=== PATIENT | male | born 1965 | race Caucasian/White ===

== ENCOUNTER 2020-01-10 22:05 | Emergency (ER) | payer SELFPAY ==
[~2020-01-10] VITALS: Ht 162.6 cm; Wt 115.7 kg
--- NOTE | 2020-01-10 22:30 | NUR ---
Patient walked into ER c/o bruise on abdominal area due to cough that started 1 week ago but worse now. Came in also for bilateral hands and foot cramps while driving home.
[2020-01-10] MEDS ORDERED: IV NORMAL SALINE 1000 ML BAG IV ONE (23:00)
[2020-01-10 23:21] LABS: *BILIRUBIN,URIN NEGATIVE (NEGATIVE); *BLOOD, URINE NEGATIVE (NEGATIVE); *CLARITY,URINE CLEAR (CLEAR); *COLOR,URINE YELLOW (YELLOW); *KETONES,URINE NEGATIVE (NEGATIVE); *UROBILINOGEN,URINE 0.2 E.U./dl (NORMAL); LEUKOCYTE ESTERASE ,URINE NEGATIVE (NEGATIVE); NITRITE, URINE NEGATIVE (NEGATIVE); UGLUCOSE 3+ (NEGATIVE)
[2020-01-10 23:22] LABS: CREATININE 1.1 mg/dL (0.6-1.3); POTASSIUM 3.8 mmol/L (3.5-5.1)
[2020-01-10 23:23] LABS: BASOPHILS # (AUTO) 0.1 K/uL (0.0-8.0); BASOPHILS % (AUTO) 0.9 % (0.0-2.0); EOSINOPHILS # (AUTO) 0.2 K/uL (0.0-0.7); EOSINOPHILS % (AUTO) 1.4 % (0.0-7.0); HEMATOCRIT 36.5 % (36.7-47.1); HEMOGLOBIN 13.2 g/dL (12.5-16.3); LYMPHOCYTES % (AUTO) 18.8 % (20.5-51.5); MEAN CORPUSCULAR HEMOGLOBIN 32.8 uug (23.8-33.4); MEAN CORPUSCULAR HGB CONC 36 g/dL (32.5-36.3); MEAN CORPUSCULAR VOLUME 90.6 fL (73.0-96.2); MONOCYTES # (AUTO) 0.9 K/uL (2.0-10.0); MONOCYTES % (AUTO) 8.3 % (0.0-11.0); NEUTROPHILS # (AUTO) 7.5 K/uL (1.8-8.9); NEUTROPHILS % (AUTO) 70.6 % (38.5-71.5); PLATELET COUNT (AUTO) 289 K/uL (152-348); RED BLOOD CELL COUNT(AUTO) 4.03 MIL/uL (4.06-5.63); WHITE BLOOD COUNT (AUTO) 10.6 K/uL (3.6-10.2)
[2020-01-10 23:28] LABS: BILIRUBIN,DIRECT 0.1 mg/dL (0.0-0.2); BILIRUBIN,TOTAL 0.7 mg/dL (0.2-1.0)
[2020-01-10] MEDS ORDERED: SWABABLE VALVE TRANSFER SET EA MC ONE (23:40)
[2020-01-10] MEDS ORDERED: IV NORMAL SALINE 250 ML IV ONE (23:41)
[2020-01-10] MEDS ORDERED: IOHEXOL 300MG/ML 100 ML INFUS..BTL ONE (23:41)
[2020-01-11] MEDS ORDERED: IV NORMAL SALINE 1000 ML BAG IV ONE
[2020-01-11 00:24] LABS: TOTAL PROTEIN, SERUM 6.9 g/dL (6.4-8.2)
--- NOTE | 2020-01-11 01:50 | NUR ---
IV removed. Catheter intact and site benign. Pressure and 4x4 gauze applied to site. No bleeding noted.
--- NOTE | 2020-01-11 01:57 | NUR ---
Patient discharged to home in stable condition. Written and verbal after care instructions given. Patient verbalizes understanding of instructions. Stressed follow up or return to ER for worsening s/s.
[2020-01-11 01:59] VITALS: BP 148/82
== END 2020-01-11 02:01 | disposition home or self-care (01) ==
LOC: ER 22:05
DX: S30.1XXA Contusion of abdominal wall, initial encounter (principal); X58.XXXA Exposure to other specified factors, initial encounter; Y92.89 Other specified places as the place of occurrence of the external cause; R25.2 Cramp and spasm; R10.9 Unspecified abdominal pain; Z98.84 Bariatric surgery status; K21.9 Gastro-esophageal reflux disease without esophagitis; J41.0 Simple chronic bronchitis; F17.200 Nicotine dependence, unspecified, uncomplicated; E66.9 Obesity, unspecified; Z68.42 Body mass index [BMI] 45.0-49.9, adult; E11.9 Type 2 diabetes mellitus without complications; G47.30 Sleep apnea, unspecified; R00.0 Tachycardia, unspecified; R03.0 Elevated blood-pressure reading, without diagnosis of hypertension; J98.11 Atelectasis; J90 Pleural effusion, not elsewhere classified
CPT/HCPCS: 36415; 71045; 74177; 80048; 80076; 81001; 82962; 83690; 84484; 85025; 85730; 86850; 86900; 86901; 87077; 87086; 87186; 93005; 96360; 96361; 99285; Q9967; 70030-TC; J7050

== ENCOUNTER 2020-02-06 14:12 | Inpatient (IN) | payer SELFPAY ==
[~2020-02-06] VITALS: Ht 170.2 cm; Wt 108.0 kg
--- NOTE | 2020-02-06 14:55 | NUR ---
Pt signed consent for CT chest with IV contrast after spoke with the pt.
[2020-02-06 15:00] LABS: POTASSIUM 3.7 mmol/L (3.5-5.1)
[2020-02-06 15:04] LABS: BASOPHILS # (AUTO) 0.1 K/uL (0.0-8.0); BASOPHILS % (AUTO) 1.2 % (0.0-2.0); EOSINOPHILS # (AUTO) 0.1 K/uL (0.0-0.7); EOSINOPHILS % (AUTO) 1.8 % (0.0-7.0); HEMATOCRIT 30.7 % (36.7-47.1); HEMOGLOBIN 10.3 g/dL (12.5-16.3); LYMPHOCYTES # (AUTO) 1.6 K/uL (20.0-40.0); LYMPHOCYTES % (AUTO) 19.3 % (20.5-51.5); MEAN CORPUSCULAR HEMOGLOBIN 31.6 uug (23.8-33.4); MEAN CORPUSCULAR HGB CONC 34 g/dL (32.5-36.3); MEAN CORPUSCULAR VOLUME 94.2 fL (73.0-96.2); MONOCYTES # (AUTO) 0.7 K/uL (2.0-10.0); MONOCYTES % (AUTO) 8.5 % (0.0-11.0); NEUTROPHILS # (AUTO) 5.7 K/uL (1.8-8.9); NEUTROPHILS % (AUTO) 69.2 % (38.5-71.5); PLATELET COUNT (AUTO) 288 K/uL (152-348); RED BLOOD CELL COUNT(AUTO) 3.26 MIL/uL (4.06-5.63); WHITE BLOOD COUNT (AUTO) 8.2 K/uL (3.6-10.2)
[2020-02-06 15:17] LABS: BILIRUBIN,DIRECT 0.1 mg/dL (0.0-0.2); BILIRUBIN,TOTAL 0.6 mg/dL (0.2-1.0); TOTAL PROTEIN, SERUM 7.1 g/dL (6.4-8.2)
--- NOTE | 2020-02-06 15:50 | NUR ---
DR GuevaraR into do Ultrasound guided left thoracentesis.
--- NOTE | 2020-02-06 16:00 | NUR ---
DR Don spoke with Sheldon Sesay for surgery thoracic surgery consult.
--- NOTE | 2020-02-06 16:25 | NUR ---
Per pt may be admitted to tele. Called tele floor for bed assignment, per charge nurse there are no beds available at this time. Nursig cage supervisor notified.
--- NOTE | 2020-02-06 16:30 | NUR ---
Vicky Webb drained 1910 ML of flank red blood from US guided thoracentsis.
--- NOTE | 2020-02-06 16:32 | NUR ---
US guided thoracentesis was done under local anesthesia by Dr Guevara.
--- NOTE | 2020-02-06 17:00 | NUR ---
Patient back from ct scan with no distress noted.
[2020-02-06] MEDS ORDERED: DEXTROSE 50% 50 ML DISP.SYRIN IV PRN (17:15)
[2020-02-06] MEDS ORDERED: ACETAMINOPHEN 325 MG TABLET PO PRN (17:15)
[2020-02-06] MEDS ORDERED: MAGNESIUM HYDROXIDE 30 ML LIQUID UDC PO PRN (17:15)
[2020-02-06] MEDS ORDERED: ONDANSETRON 4 MG/2 ML VIAL IV PRN (17:15)
[2020-02-06] MEDS ORDERED: Z GUARD REMEDY PASTE 57 GM TUBE TOP PRN (17:15)
--- NOTE | 2020-02-06 17:30 | NUR ---
Patient states "I can breath better now." No distress noted.
[2020-02-06 20:29] LABS: BASOPHILS # (AUTO) 0.1 K/uL (0.0-8.0); BASOPHILS % (AUTO) 1.4 % (0.0-2.0); EOSINOPHILS # (AUTO) 0.2 K/uL (0.0-0.7); HEMATOCRIT 28.2 % (36.7-47.1); HEMOGLOBIN 9.7 g/dL (12.5-16.3); LYMPHOCYTES % (AUTO) 24.9 % (20.5-51.5); MEAN CORPUSCULAR HEMOGLOBIN 31.8 uug (23.8-33.4); MEAN CORPUSCULAR HGB CONC 34 g/dL (32.5-36.3); MEAN CORPUSCULAR VOLUME 92.8 fL (73.0-96.2); MONOCYTES # (AUTO) 0.7 K/uL (2.0-10.0); MONOCYTES % (AUTO) 8.9 % (0.0-11.0); NEUTROPHILS # (AUTO) 5.1 K/uL (1.8-8.9); NEUTROPHILS % (AUTO) 62.8 % (38.5-71.5); PLATELET COUNT (AUTO) 256 K/uL (152-348); RED BLOOD CELL COUNT(AUTO) 3.04 MIL/uL (4.06-5.63); WHITE BLOOD COUNT (AUTO) 8.1 K/uL (3.6-10.2)
--- NOTE | 2020-02-06 20:55 | NUR ---
Transfered to [address] [place] [address] with no distress noted.
--- NOTE | 2020-02-06 21:02 | NUR ---
Received pt via yo from ER. Pt is stable. On RA. Denies SOB or chest pain. NC is ordered PRN. Refuses NC at this time. Pt sating at 94% on RA. Initial assessment done. Will continue to monitor.
[2020-02-06 21:20] VITALS: BP 135/79
[2020-02-06] MEDS: BLOOD SUGAR DIAGNOSTIC 1 EACH STRIP VI SCH (21:48)
[2020-02-06] MEDS: INSULIN REGULAR, HUMAN 300 UNIT/3 ML VIAL SQ PRN (22:12)
[2020-02-06] MEDS: NICOTINE 21 MG/24HR PATCH TD SCH (23:19)
[2020-02-07 00:11] VITALS: BP 121/70
[2020-02-07] MEDS ORDERED: MELATONIN 3 MG TABLET PO PRN (04:15)
--- NOTE | 2020-02-07 04:21 | NUR ---
Pt c/o pain when coughing and requests cough medicine. Dr. Luo was notified and Tessalon pearls were ordered.
[2020-02-07 04:25] VITALS: BP 127/78
[2020-02-07] MEDS: BENZONATATE 100 MG CAPSULE PO PRN ×2 (04:44→20:30)
[2020-02-07 06:06] LABS: BASOPHILS # (AUTO) 0.1 K/uL (0.0-8.0); BASOPHILS % (AUTO) 0.7 % (0.0-2.0); EOSINOPHILS # (AUTO) 0.2 K/uL (0.0-0.7); EOSINOPHILS % (AUTO) 2.2 % (0.0-7.0); HEMATOCRIT 27.7 % (36.7-47.1); HEMOGLOBIN 9.6 g/dL (12.5-16.3); LYMPHOCYTES # (AUTO) 2.1 K/uL (20.0-40.0); LYMPHOCYTES % (AUTO) 26.4 % (20.5-51.5); MEAN CORPUSCULAR HEMOGLOBIN 32.4 uug (23.8-33.4); MEAN CORPUSCULAR HGB CONC 35 g/dL (32.5-36.3); MEAN CORPUSCULAR VOLUME 93.3 fL (73.0-96.2); MONOCYTES # (AUTO) 0.8 K/uL (2.0-10.0); MONOCYTES % (AUTO) 9.6 % (0.0-11.0); NEUTROPHILS # (AUTO) 4.8 K/uL (1.8-8.9); NEUTROPHILS % (AUTO) 61.1 % (38.5-71.5); PLATELET COUNT (AUTO) 273 K/uL (152-348); RED BLOOD CELL COUNT(AUTO) 2.97 MIL/uL (4.06-5.63); WHITE BLOOD COUNT (AUTO) 7.8 K/uL (3.6-10.2)
[2020-02-07 06:18] LABS: CREATININE 1.1 mg/dL (0.6-1.3); MAGNESIUM 2.2 mg/dL (1.8-2.4); PHOSPHOROUS 3.8 mg/dL (2.5-4.9); POTASSIUM 3.6 mmol/L (3.5-5.1)
--- NOTE | 2020-02-07 06:30 | NUR ---
Pt was awake most of the night. Only c/o pain during cough. Tessalon pearls were ordered. Pt was placed on 2L NC and is tolerating well. Denies any SOB at this time. Safety and comfort provided. Sinus tachy on the monitor at 102. Will endorse to day shift.
[2020-02-07] MEDS: BLOOD SUGAR DIAGNOSTIC 1 EACH STRIP VI SCH ×4 (06:36→20:33)
--- NOTE | 2020-02-07 07:30 | NUR ---
RECEIVED PATIENT IN THE BATHROOM ABLE TO AMBULATE WITH SLOW BUT STEADY GAIT BACK INTO BED FIXED AND MADE COMFORTABLE HE IS ALERT AND ORIENTED NO SOB ON ROOM AIR AT THIS TIME.LEFT MID BACK S/P THORACENTHESIS WITH BAND AID INTACT WITH NO DRAINAGE AT THIS TIME NO S/S OF HYPO/HYPERGLYCEMIC REACTIONS AT THIS TIME CALL LIGHTS AND ALL PERSONAL BELONGINGS PLACED WITHIN EASY REACH WILL CONTINUE TO OBSERVE AND PROVIDE COMFORT.
[2020-02-07] MEDS: INSULIN REGULAR, HUMAN 300 UNIT/3 ML VIAL SQ PRN ×3 (08:04→16:47)
[2020-02-07] MEDS: NICOTINE 21 MG/24HR PATCH TD SCH (08:05)
--- NOTE | 2020-02-07 09:08 | NUR ---
NILDA AGUIRRE HOSPITALIST HERE SEEN PATIENT WITH NEW ORDERS AND NOTED
--- NOTE | 2020-02-07 10:29 | NUR ---
PATIENT SEEN AND EXAMINED BY DR HURLEY WITH NEW ORDERS AND NOTED.
[2020-02-07 11:16] VITALS: BP 110/72
[2020-02-07] MEDS ORDERED: GUAIFENESIN/CODEINE 5 ML LIQUID UDC PO PRN (14:00)
[2020-02-07 14:41] VITALS: BP 124/74
--- NOTE | 2020-02-07 15:46 | NUR ---
IN BED SLEEPING AT LONG INTERVALS BUT EASILY AROUSABLE ON ROUNDS STATED THAT HE DID NOT SLEEP WELL LAST NITE DENIES DISCOMFORTS NOT IN DISTRESS AT THIS TIME.WILL CONTINUE TO OBSERVE.
--- NOTE | 2020-02-07 18:36 | NUR ---
PATIENT REQUESTED FOR COUGH MEDICATION GIVEN ORDERED REASSURED AND MADE COMFORTABLE
[2020-02-07] MEDS: HYDROCODONE/APAP 5-325MG TABLET PO PRN (20:14)
[2020-02-07] MEDS: ATORVASTATIN 20 MG TABLET PO SCH (20:14)
[2020-02-07 20:30] VITALS: BP 135/77
[2020-02-08] VITALS: BP 140/70
[2020-02-08] MEDS: HYDROCODONE/APAP 5-325MG TABLET PO PRN ×5 (00:17→22:16)
[2020-02-08 04:00] VITALS: BP 120/65
--- NOTE | 2020-02-08 04:18 | NUR ---
PT C/O SOB; PT STATED HE WAS OK THEN HE FELT HAVING SHORTNESS OF BREATH; O2 2L IN PLACE AND ADVISED TO BE ON BEDREST FOR NOW.
[2020-02-08 05:58] LABS: BASOPHILS # (AUTO) 0.1 K/uL (0.0-8.0); BASOPHILS % (AUTO) 0.8 % (0.0-2.0); EOSINOPHILS # (AUTO) 0.3 K/uL (0.0-0.7); EOSINOPHILS % (AUTO) 3.8 % (0.0-7.0); HEMATOCRIT 29.4 % (36.7-47.1); LYMPHOCYTES # (AUTO) 1.9 K/uL (20.0-40.0); LYMPHOCYTES % (AUTO) 26.8 % (20.5-51.5); MEAN CORPUSCULAR HEMOGLOBIN 31.6 uug (23.8-33.4); MEAN CORPUSCULAR HGB CONC 34 g/dL (32.5-36.3); MEAN CORPUSCULAR VOLUME 93.3 fL (73.0-96.2); MONOCYTES # (AUTO) 0.7 K/uL (2.0-10.0); MONOCYTES % (AUTO) 9.1 % (0.0-11.0); NEUTROPHILS # (AUTO) 4.3 K/uL (1.8-8.9); NEUTROPHILS % (AUTO) 59.5 % (38.5-71.5); PLATELET COUNT (AUTO) 291 K/uL (152-348); RED BLOOD CELL COUNT(AUTO) 3.15 MIL/uL (4.06-5.63); WHITE BLOOD COUNT (AUTO) 7.2 K/uL (3.6-10.2)
[2020-02-08] MEDS: PANTOPRAZOLE SODIUM 40 MG TABLET.DR PO SCH (06:09)
[2020-02-08] MEDS: BLOOD SUGAR DIAGNOSTIC 1 EACH STRIP VI SCH ×4 (06:10→20:59)
[2020-02-08 06:15] LABS: MAGNESIUM 2.2 mg/dL (1.8-2.4); PHOSPHOROUS 3.8 mg/dL (2.5-4.9); POTASSIUM 3.8 mmol/L (3.5-5.1)
--- NOTE | 2020-02-08 07:23 | NUR ---
SLEEPING WITH EYES CLOSED WITH O2 AT 2L/M BY NASAL CANULA WITH NO S/S OF SHORTNESS OF BREATH. OPENS EYES WHEN NAME IS CALLED AND IS ALERT AND ORIENTED CALL LIGHTS AND ALL PERSONAL BELONGINGS ARE WITHIN EASY REACH MADE COMFORTABLE AND WILL CONTINUE TO OBSERVE.
[2020-02-08] MEDS: INSULIN REGULAR, HUMAN 300 UNIT/3 ML VIAL SQ PRN ×3 (08:04→16:23)
[2020-02-08] MEDS: NICOTINE 21 MG/24HR PATCH TD SCH (08:05)
[2020-02-08] MEDS: BENZONATATE 100 MG CAPSULE PO PRN (08:05)
[2020-02-08 09:10] LABS: ABG PCO2 37.8 mmHg (35.0-45.0); ABG PH 7.439 (7.350-7.450); ABG PO2 66.9 mmHg (75.0-100.0); ABG SITE LEFT RADIAL; ABG TOTAL HEMOGLOBIN 10.3 G/dL (13.5-18.0); COHb 1.2 % (0.5-1.5); MetHb 0.2 % (0.0-1.5); O2Hb 92.4 % (94.0-97.0); VENT MODE ROOM AIR
--- NOTE | 2020-02-08 09:58 | NUR ---
DR HURLEY HERE SEEN PATIENT AWARE OF THE ABG RESULTS WITH NEW ORDERS AND NOTED PATIENT IS ON O2 AT 3L/M AT THIS TIME BECAUSE PER THE RT ROOM AIR O2 WAS 82 PERCENT AFTER THE ABG
[2020-02-08 11:57] VITALS: BP 106/69
--- NOTE | 2020-02-08 14:00 | NUR ---
UP AND AMBULATORY IN THE HALLWAY ON ROOM AIR WITH NO SOB LEFT CHEST AREA WITH BAND AID WITH NO DRAINAGE AT THIS TIME ULTRA SOUND OF THE CHEST DONE ORDERED TO EVALUATE THE LEVEL OF THE PLEURAL EFFUSSION AND DOCUMENTED
[2020-02-08 16:00] VITALS: BP 126/73
--- NOTE | 2020-02-08 17:34 | NUR ---
PATIENT STATED C/O PAIN MEDICATED ORDERED ABLE TO AMBULATE TO DESIRED DESTINATION ON ROOM AIR WITH ADEQUATE SATS NO SOB WILL CONTINUE TO OBSERVE
[2020-02-08 20:00] VITALS: BP 121/67
[2020-02-08] MEDS: ATORVASTATIN 20 MG TABLET PO SCH (20:55)
[2020-02-09 00:11] VITALS: BP 132/80
[2020-02-09] MEDS: HYDROCODONE/APAP 5-325MG TABLET PO PRN ×2 (02:32→08:54)
[2020-02-09 04:00] VITALS: BP 129/72
[2020-02-09] MEDS: PANTOPRAZOLE SODIUM 40 MG TABLET.DR PO SCH (06:02)
--- NOTE | 2020-02-09 06:27 | NUR ---
Patient slept intermittently.C/o pain on the groin area.Medicated with [employer] prn with good result.Patient walked through the hallway.On RA.Denies SOB.Iv on the right AC 20 g patent and intact.No s/s of infiltration.Will endorse to oncoming shift.
[2020-02-09] MEDS: BLOOD SUGAR DIAGNOSTIC 1 EACH STRIP VI SCH ×2 (06:32→11:45)
[2020-02-09 06:42] LABS: BASOPHILS # (AUTO) 0.1 K/uL (0.0-8.0); BASOPHILS % (AUTO) 0.8 % (0.0-2.0); EOSINOPHILS # (AUTO) 0.2 K/uL (0.0-0.7); EOSINOPHILS % (AUTO) 2.7 % (0.0-7.0); HEMATOCRIT 28.2 % (36.7-47.1); HEMOGLOBIN 9.7 g/dL (12.5-16.3); LYMPHOCYTES # (AUTO) 1.9 K/uL (20.0-40.0); LYMPHOCYTES % (AUTO) 24.9 % (20.5-51.5); MEAN CORPUSCULAR HEMOGLOBIN 31.9 uug (23.8-33.4); MEAN CORPUSCULAR HGB CONC 34 g/dL (32.5-36.3); MEAN CORPUSCULAR VOLUME 92.9 fL (73.0-96.2); MONOCYTES # (AUTO) 0.6 K/uL (2.0-10.0); MONOCYTES % (AUTO) 7.9 % (0.0-11.0); NEUTROPHILS # (AUTO) 4.9 K/uL (1.8-8.9); NEUTROPHILS % (AUTO) 63.7 % (38.5-71.5); PLATELET COUNT (AUTO) 304 K/uL (152-348); RED BLOOD CELL COUNT(AUTO) 3.03 MIL/uL (4.06-5.63); WHITE BLOOD COUNT (AUTO) 7.7 K/uL (3.6-10.2)
[2020-02-09 07:03] LABS: MAGNESIUM 2.3 mg/dL (1.8-2.4); PHOSPHOROUS 2.8 mg/dL (2.5-4.9); POTASSIUM 3.5 mmol/L (3.5-5.1)
--- NOTE | 2020-02-09 08:00 | NUR ---
Patient sleeping arousable to name and touch, AOx4, on RA denied any SOB or distress at this time. On tele SR, denied any chest pain, complained of right groin pain, pain management will be provided. Safety precaution in place. Call light and phone within reach. Belongings at bedside. No other complaints at this time
[2020-02-09 08:16] VITALS: BP 130/88
[2020-02-09] MEDS: NICOTINE 21 MG/24HR PATCH TD SCH (08:54)
[2020-02-09 11:11] VITALS: BP 128/57
[2020-02-09] MEDS: INSULIN REGULAR, HUMAN 300 UNIT/3 ML VIAL SQ PRN (11:51)
[2020-02-09 14:57] VITALS: BP 128/57
[2020-02-09] MEDS ORDERED: BENZ-38 PO (15:04)
[2020-02-09] MEDS ORDERED: NICO-780 TD (15:04)
[2020-02-09] MEDS ORDERED: GUAI5SYR4 PO (15:04)
[2020-02-09] MEDS ORDERED: ATOR20TA PO (15:04)
--- NOTE | 2020-02-09 15:45 | NUR ---
Patient discharged ambulatory AOx4, on RA denied SOB or distress at this time. Denied any chest pain and stated feeling a lot better. DC instructions and forms signed and given to patient. Belongings list signed and all accounted for. Prescriptions given to patient. Not in acute distress and no complaints at this time.
== END 2020-02-09 15:45 | disposition home or self-care (01) | DRG 200 ==
LOC: ER 14:13 → TELE3 20:34
PROVIDERS: ADMIT Nurse Practitioner Acute Care; ATTEND Nurse Practitioner Acute Care
PROC: 0W9B3ZZ Drainage of Left Pleural Cavity, Percutaneous Approach (ICD-10-PCS; principal; 2020-02-06)
DX: S27.1XXA Traumatic hemothorax, initial encounter (principal); D62 Acute posthemorrhagic anemia; E87.1 Hypo-osmolality and hyponatremia; E44.1 Mild protein-calorie malnutrition; D68.69 Other thrombophilia; J98.11 Atelectasis; X58.XXXA Exposure to other specified factors, initial encounter; Y93.89 Activity, other specified; Y92.89 Other specified places as the place of occurrence of the external cause; Z98.84 Bariatric surgery status; E11.65 Type 2 diabetes mellitus with hyperglycemia; F12.90 Cannabis use, unspecified, uncomplicated; E66.9 Obesity, unspecified; F17.210 Nicotine dependence, cigarettes, uncomplicated; I25.10 Atherosclerotic heart disease of native coronary artery without angina pectoris; K21.9 Gastro-esophageal reflux disease without esophagitis; K76.0 Fatty (change of) liver, not elsewhere classified; E88.09 Other disorders of plasma-protein metabolism, not elsewhere classified; Z68.37 Body mass index [BMI] 37.0-37.9, adult; M84.48XD Pathological fracture, other site, subsequent encounter for fracture with routine healing; J42 Unspecified chronic bronchitis; Z79.4 Long term (current) use of insulin; G47.30 Sleep apnea, unspecified; K42.9 Umbilical hernia without obstruction or gangrene; K40.90 Unilateral inguinal hernia, without obstruction or gangrene, not specified as recurrent
CPT/HCPCS: 32555; 36415; 36600; 70030-TC; 71045; 71250; 83735; 83986; 84100; 84155; 85025; 85730; 87070; 87205; 93005; 93880; A4663; G0378; J1815